=== PATIENT | male | born 1995 | race Hispanic/Latino ===

== ENCOUNTER 2018-08-06 19:55 | Emergency (ER) | payer SELFPAY ==
[2018-08-06 20:31] LABS: #Basophils 0.1 thou/uL (0.0-0.2); #Eosinphils 0.4 thou/uL (0.0-0.7); #Lymphocytes 2.3 thou/uL (1.20-3.40); #Neutrophils 6.6 thou/uL (1.40-6.50); %Basophils 0.8 % (0.0-1.0); %Eosinophils 3.8 % (0.0-10.0); %Lymphocytes 22.6 % (21.0-51.0); %Monocytes 9.3 % (0.0-10.0); %Neutrophils 63.5 % (42.0-75.0); Hemoglobin 16.8 g/dL (14.0-18.0); Mean Corpuscular HGB CONC 34.9 g/dL (32.0-36.0); Mean Corpuscular Hemoglobin 33.1 pg (27.0-31.0); Mean Platelet Volume 7.4 fL (7.4-10.4); Platelet Count 296 thou/uL (130-400); RBC Distribution Width 11.5 % (11.5-14.5); Red Blood Cell (RBC) Count 5.06 mill/uL (4.70-6.10); White Blood Cell (WBC) Count 10.3 thou/uL (4.8-10.8)
[2018-08-06 20:53] LABS: Bilirubin Small (Negative); Blood, Urine Negative (Negative); Clarity CLOUDY (Clear); Glucose, Urine (Dipstick) Negative (Negative); Leukocyte Negative (Negative); Nitrite Negative (Negative); Protein, Urine (Dipstick) 30 mg/dL (Neg-Trace); Specific Gravity, Urine 1.023 (1.002-1.036); Urobilinogen 0.2 mg/dL (0.2-1.0); pH, Urine 5.5 (5.0-9.0)
[2018-08-06 20:55] LABS: Hyaline Casts/LPF >50 HYALINE CAST LPF (0-3 Hyaline); Pathc Cast-AUWi Flag 55.77 (0-2.49)
[2018-08-06 21:04] LABS: Bacteria/HPF Rare-Few HPF (None Seen); Crystals/HPF RARE CA OXALATE HPF (Negative)
[2018-08-06 21:05] LABS: RBC/HPF 0-3 HPF (0-3); Squamous Epithelial 0-3 HPF (0-3)
[2018-08-06 21:55] LABS: Chloride 98 mmol/L (98-107); Potassium 3.5 mmol/L (3.5-5.1); Sodium 134 mmol/L (136-145)
[2018-08-06 21:56] LABS: Calcium 10.4 mg/dL (7.8-10.44)
[2018-08-06 21:57] LABS: Globulin 3.3 g/dL (2.4-3.5); Glucose 90 mg/dL (70-105); Protein, Total 8.3 g/dL (6.0-8.3)
[2018-08-06 21:58] LABS: Anion Gap 14 mmol/L (10-20); Carbon Dioxide 26 mmol/L (22-29)
[2018-08-06 21:59] LABS: Alkaline Phosphatase 73 U/L (40-150)
[2018-08-06 22:00] LABS: Calc. Creatinine Clearance 0 mL/min (70-130); Estimated GFR-MDRD 83
[2018-08-06 22:01] LABS: BUN (Urea Nitrogen) 14 mg/dL (8.9-20.6)
[2018-08-06 22:02] LABS: AST (SGOT) 20 U/L (5-34)
[2018-08-06 22:03] LABS: ALT (SGPT) 19 U/L (8-55); CK (CPK) 113 U/L (30-200)
== END 2018-08-06 23:20 | disposition home or self-care (01) ==
LOC: ERS 19:55
DX: E86.0 Dehydration (principal); J06.9 Acute upper respiratory infection, unspecified; F17.210 Nicotine dependence, cigarettes, uncomplicated
CPT/HCPCS: 36415; 80053; 81003; 81015; 82550; 85025; 96360